=== PATIENT | male | born 1945 | race African-American/Black ===

== ENCOUNTER → 2018-04-22 | Outpatient (CLI) | payer OTHER ==
[~2018-04-22] VITALS: Ht 188 cm; Wt 90.3 kg
[~2018-04-22] MED LIST: ASPIR 8181 MG PO; ATORVASTATIN CA40 MG PO; COREG25 MG PO; DIOVAN 80 MG TA80 M1 PO; ELIQUIS5 MG PO; HYDROCHLOROTHIA25 M2 PO; HYZAAR 100-251 EACH PO; K-DUR 20 MEQ T20 MEQ PO; LIORESAL 10 MG10 MG PO; LISINOPRIL20 MG PO; MOTION RELIEF25 MG PO; NIFEDICAL XL60 MG PO; PACERONE 200 M200 M1 PO; PLAVIX 75 MG TA75 M1 PO; PROCARDIA XL30 MG PO; SPIRONOLACTONE25 M1 PO; TRAMADOL 50 MG50 MG PO
[2018-04-22 10:07] VITALS: BP 150/89
[2018-04-22 10:13] LABS: HEMATOCRIT 38.2 % (42.0-52.0); HEMOGLOBIN 12.4 gm/dL (14.0-18.0); MCH 32.3 pg (26.0-34.0); MCHC 32.6 g/dL (28.0-37.0); MCV 99.1 fL (80.0-100.0); MPV 10.2 fl. (7.2-11.1); RBC 3.85 mil/uL (4.50-6.00); RDW-CV 14.4 % (10.5-14.5); WBC 5.2 thou/uL (4.0-11.0)
[2018-04-22 10:25] LABS: APTT 32.4 Seconds (25.0-31.3); INR 1.2; PROTIME 11.6 Seconds (9.20-11.50)
[2018-04-22 10:54] LABS: ANION GAP 8 mmol/L (7-16); BUN 17 mg/dL (7-18); CALCIUM 8.5 mg/dL (8.5-10.1); CHLORIDE 105 mmol/L (98-107); CO2 26 mmol/L (21-32); CREATININE 1.3 mg/dL (0.6-1.3); GLUCOSE 95 mg/dL (70-99); POTASSIUM 4.7 mmol/L (3.5-5.1); SODIUM 139 mmol/L (136-145)
[2018-04-22 10:59] LABS: ALBUMIN 3.5 g/dL (3.4-5.0); ALKALINE PHOSPHATASE 60 U/L (46-116); CHOLESTEROL 110 mg/dL (<200); HDL CHOLESTEROL 51 mg/dL (>40); LDL CHOLESTEROL 49 mg/dL (<100); SGOT 21 U/L (15-37); SGPT 26 U/L (30-65); TC:HDL 2.2 Ratio (Not establshd); TOTAL BILIRUBIN 1.1 mg/dL (<0.1-1.0); TRIGLYCERIDE 52 mg/dL (<150); VLDL 10 mg/dL (<40)
[2018-04-22 11:02] LABS: SERUM ASSESSMENT Clear
[2018-04-22 12:14] VITALS: BP 156/99
[2018-04-22 12:57] VITALS: BP 144/88
--- NOTE | 2018-04-22 14:53 | EKG ---
[place] [address] ELECTROCARDIOGRAM REPORT Name: ROHAN WHITEHEAD Room: [facility]#: [id number] Admission: 04/22/18 Attend Phys: Rj Thornton MD Discharge: Date of : 43 Report #: [id number] THIS REPORT FOR: //name// [facility] Test Date: 2018-04-22 Test Time: 10:02:28 Pat Name: ROHAN WHITEHEAD Department: Room: Gender: M Manager Local: : 1945 Requested By: Rj Thornton Order Number: [id number] Reading MD: Rj Thornton Measurements Intervals [place] Rate: 60 P: [place]: 197 QRS: -28 QRSD: 126 T: QT: 483 QTc: 483 Interpretive Statements Atrial-paced rhythm Left bundle branch block Compared to ECG 06/04/2016 07:50:48 Left bundle-branch block now present Sinus rhythm no longer present Ventricular premature complex(es) no longer present Electronically Signed On 04-22-2018 14:53:23 CDT by Rj Thornton [email or web address] <ELECTRONICALLY SIGNED> By: Rj Thornton MD, FAC 04/22/18 1453 1002 1002 Rj Thornton MD, [facility] /EPI
--- NOTE | 2018-04-29 14:40 | CARD ---
[address] [address] CARDIAC CATH REPORT Name: ROHAN WHITEHEAD Room: [facility]#: [id number] Admission: 04/22/18 Attend Phys: Rj Thornton MD Discharge: Date of : 43 Report #: [id number] THIS REPORT FOR: //name// APPROVED REPORT Study performed: 04/22/2018 10:17:48 Patient Status: Out-Patient Room #: Event Personnel: Rj Thornton Office System Analyst, Laurel Glez RN Circuit Rider, Kai Mcwilliams (R) Monitor, Nelly Mcdermott RTR Scrub, Bhavya Arroyo RTR Scrub, Cynthia Goldstein Monitor Exam: ICD generator change Indications: ICD generator at elective replacement The patient is a 72 year-old male with a history of nonischemic cardiomyopathy status post ICD placement for primary prevention. Patient Info Last EF%: 15-20% Date: 03/25/18 NYHA Heart Class: II Reason for implant: Primary prevention Intraoperative Conscious Sedation Sedation start time: 10:48 Case end Time: 11:30 Fentanyl 75 mcg Versed 2 mg Implanted Devices: Biotronik Itrevia 7 DRT DF 1, model #863037, serial #[id number] dual-chamber ICD generator Explanted Devices: Medtronic Secura DR, model number D2 to 4 DRG, serial number [id number] dual-chamber ICD generator Procedure After explaining the risks, benefits, and alternative options, informed consent was obtained from the patient. The patient was brought to the cardiac catheterization lab and the left chest and shoulder were prepped and draped in the usual fashion. After informed consent was obtained the patient was brought to the cardiac catheterization lab. The area of the left chest was prepped and draped in sterile fashion. Local anesthesia was achieved with 1% lidocaine. After an initial incision was made the ICD generator was explanted using electrocautery and blunt [place] [address] CARDIAC CATH REPORT Name: ROHAN WHITEHEAD Room: [facility]#: [id number] Admission: 04/22/18 Attend Phys: Rj Thornton MD Discharge: Date of : 43 Report #: [id number] was then removed from the atrial and ventricular defibrillator lead. The pocket was flushed with antibiotic solution. A new dual-chamber ICD generator was attached to the atrial and pacing defibrillator lead. The generator and redundant lead were then replaced within the device pocket. The deep tissues were closed with interrupted stitches of 2-0 Vicryl. The skin incision was then closed with a single subcuticular stitch of 4-0 Vicryl. Several Steri-Strips were placed across the incision. A sterile Telfa dressing was then covered with a Tegaderm. The patient tolerated procedure well without complication. Findings Sensed P-wave 1.20 mV. Sensed R-wave 22.5 mV. Right atrial pacing threshold 1.0 V at 0.40 ms. Right ventricular pacing threshold 1.5 V at 0.40 ms. Atrially pacing impedance 375 ohms. RV pacing impedance 346 ohms. VT 1 section rate 154 bpm. VT 2 detection rate 171 bpm. VF detection rate to 100 bpm. VT 1 therapy monitor. VT 2 therapies anti-tach pacing 6 followed by 40 J shock times a day. VF therapies anti-tach pacing times one followed by 40 J shock times a day. Conclusion 1. Dual-chamber ICD generator at elective replacement. 2. Successful replacement of a dual-chamber ICD generator. Recommendations 1. Follow-up site check in one week. 2. Follow-up interrogations per protocol. <ELECTRONICALLY SIGNED> By: Rj Thornton MD, FACC 04/29/18 1440 1440 1440Mickay Thornton MD, FACC /INF
--- NOTE | 2018-05-07 16:55 | H ---
[place] [address] HISTORY AND PHYSICAL Name: ROHAN WHITEHEAD Room: [facility]#: [id number] Admission: 04/22/18 Attend Phys: Rj Thornton MD Discharge: Date of : 43 Report #: [id number] THIS REPORT FOR: //name// CC: Doug Thornton DATE OF ADMISSION: 04/22/2018 HISTORY OF PRESENT ILLNESS: The patient is a very pleasant 72-year-old white male with a history of ICD placement for nonischemic cardiomyopathy. His generator has reached elective replacement. The patient is being brought to the hospital today for elective ICD generator change. PAST MEDICAL HISTORY: 1. Cardiomyopathy that is nonischemic. 2. Nonocclusive coronary artery disease. 3. Hyperlipidemia. 4. Essential hypertension. 5. Remote ICD placement for primary prevention. FAMILY HISTORY: Noncontributory. SOCIAL HISTORY: The patient quit smoking in 1965. He drinks alcohol rarely. ALLERGIES: CARVEDILOL AND SHELLFISH. CURRENT MEDICATIONS: Amiodarone 200 mg daily, Eliquis 5 mg b.i.d., atorvastatin 80 mg daily, clopidogrel 75 mg daily, losartan/hydrochlorothiazide 100/25 one tablet daily, nifedipine XL 30 mg daily, potassium chloride 20 mEq daily. REVIEW OF SYSTEMS: GENERAL: The patient denies fevers, chills or weight loss. HEENT: No history of nosebleeds. CARDIAC: He denies any significant chest pain, claudication or leg swelling. He denies near syncope, orthopnea or palpitations. He denies syncope. RESPIRATORY: He denies cough or shortness of breath. ENDOCRINE: He denies cold intolerance or heat intolerance. HEMATOLOGIC AND LYMPHATIC: No history of cancer, blood clots or bleeding disorder. SKIN: He denies any rashes. MUSCULOSKELETAL: He has arthralgias, but denies connective tissue disease. GENITOURINARY: He denies pain, nausea, vomiting, hematemesis or hematochezia. NEUROLOGIC: He denies any dizziness, lightheadedness. PSYCHIATRIC: He denies any depression or anxiety. PHYSICAL EXAMINATION: [place] [address] HISTORY AND PHYSICAL Name: CARLOS EDUARDOHARJINDERROHAN Harmeet Room: [facility]#: [id number] Admission: 04/22/18 Attend Phys: Rj Thornton MD Discharge: Date of : 43 Report #: [id number] VITAL SIGNS: Stable. Blood pressure 146/64, pulse 60 and regular. GENERAL: This is a pleasant elderly gentleman in no distress. Mood and affect appropriate. HEENT: Extraocular muscles intact. NECK: Without jugular venous distention or bruit. CHEST: Clear to auscultation. CARDIAC: Regular rhythm without gallop or murmur. ABDOMEN: Soft and nontender. EXTREMITIES: Without clubbing, cyanosis or edema. SKIN: Warm and dry. IMPRESSION: 1. ICD generator elective replacement. 2. Nonischemic cardiomyopathy. 3. Nonocclusive coronary artery disease. 4. History of paroxysmal atrial fibrillation. 5. Chronic systolic heart failure. 6. Essential hypertension. 7. Pure hyperlipidemia. 8. Chronic anticoagulation. 9. Remote history of transient ischemic attack. PLAN: 1. ICD generator change. 2. Continue other medications as outlined above. <ELECTRONICALLY SIGNED> By: Rj Thornton MD, FACC 05/07/18 1655 1619 1718Mickay Thornton MD, FACC /nt
== END | disposition home or self-care (01) ==
LOC: M.CL 04-10 09:50
PROVIDERS: Internal Medicine Cardiovascular Disease
DX: Z45.02 Encounter for adjustment and management of automatic implantable cardiac defibrillator (principal); I10 Essential (primary) hypertension; I25.10 Atherosclerotic heart disease of native coronary artery without angina pectoris; Z96.651 Presence of right artificial knee joint; Z86.73 Personal history of transient ischemic attack (TIA), and cerebral infarction without residual deficits; Z98.890 Other specified postprocedural states; Z79.01 Long term (current) use of anticoagulants; Z79.899 Other long term (current) drug therapy

== ENCOUNTER 2018-11-04 22:18 | Emergency (ER) | payer OTHER ==
[~2018-11-04] VITALS: Ht 188 cm; Wt 90.3 kg
[2018-11-04 22:59] LABS: ABSOLUTE BASOPHILS 0.1 thou/uL (0.0-0.2); ABSOLUTE EOSINOPHILS 0.2 thou/uL (0.0-0.7); ABSOLUTE LYMPHOCYTES 3.3 thou/uL (0.8-5.3); ABSOLUTE MONOCYTES 0.5 thou/uL (0.0-1.2); ABSOLUTE NEUTROPHILS 2.7 thou/uL (1.6-8.1); EOSINOPHILS 3.4 %; HEMATOCRIT 38.6 % (42.0-52.0); HEMOGLOBIN 12.5 gm/dL (14.0-18.0); MCH 32.5 pg (26.0-34.0); MCHC 32.4 g/dL (28.0-37.0); MCV 100.2 fL (80.0-100.0); MONOCYTES 7.4 %; MPV 9.6 fl. (7.2-11.1); NUCLEATED RBCS 0 /100WBC; PLATELET COUNT* 168 thou/uL (150-400); POLYS 40.2 %; RBC 3.85 mil/uL (4.50-6.00); RDW-CV 13.2 % (10.5-14.5); WBC 6.8 thou/uL (4.0-11.0)
[2018-11-04 23:14] LABS: ANION GAP 5 mmol/L (7-16); BUN 14 mg/dL (7-18); CALCIUM 8.7 mg/dL (8.5-10.1); CHLORIDE 107 mmol/L (98-107); CO2 28 mmol/L (21-32); CREATININE 1.3 mg/dL (0.6-1.3); GLUCOSE 90 mg/dL (70-99); POTASSIUM 4.6 mmol/L (3.5-5.1); SODIUM 140 mmol/L (136-145); TROPONIN-I LEVEL <0.06 ng/mL (<0.06)
[2018-11-04 23:15] LABS: ALBUMIN 3.7 g/dL (3.4-5.0); ALKALINE PHOSPHATASE 70 U/L (46-116); NT-PRO BRAIN NAT PEPTIDE 295 pg/mL (<300); SGOT 21 U/L (15-37); SGPT 23 U/L (30-65); TOTAL BILIRUBIN 0.6 mg/dL (<0.1-1.0); TOTAL PROTEIN 7.4 g/dL (6.4-8.2)
[2018-11-04 23:34] VITALS: BP 159/83
--- NOTE | 2018-11-05 09:40 | EKG ---
[place] [address] ELECTROCARDIOGRAM REPORT Name: ROHAN WHITEHEAD Room: [facility]#: [id number] Admission: 11/04/18 Attend Phys: Discharge: 11/04/18 Date of : 43 Report #: [id number] THIS REPORT FOR: //name// [facility] Test Date: 2018-11-04 Test Time: 22:51:07 Pat Name: ROHAN WHITEHEAD Department: Room: Gender: M Infectious Disease Physician: : 1945 Requested By: Zak Guerrero Order Number: [id number] MD: Doug Banegas Measurements Intervals [place] Rate: 60 P: [place]: 171 QRS: -27 QRSD: 126 T: 55 QT: 474 QTc: 474 Interpretive Statements Atrial-paced rhythm LEFT VENTRICULAR HYPERTROPHY with repolarization changes Compared to ECG 04/22/2018 10:02:28 atrial paced rhythm noted Electronically Signed On 11-05-2018 9:40:23 CDT by Doug Banegas [email or web address] <ELECTRONICALLY SIGNED> By: Doug Banegas MD, [facility] 11/05/18 0940 50 50 Doug Banegas MD, FACC /EPI
== END 2018-11-04 23:36 | disposition home or self-care (01) ==
LOC: M.ERS 22:18
PROVIDERS: Emergency Medicine
DX: R42 Dizziness and giddiness (principal); R51 Headache; I10 Essential (primary) hypertension; Z96.651 Presence of right artificial knee joint; Z86.73 Personal history of transient ischemic attack (TIA), and cerebral infarction without residual deficits; Z91.013 Allergy to seafood

== ENCOUNTER 2020-04-30 12:13 | Emergency (ER) | payer OTHER ==
[~2020-04-30] VITALS: Ht 188 cm; Wt 96.2 kg
[2020-04-30 12:19] VITALS: BP 139/70
[2020-04-30] MEDS ORDERED: TAMSULOSIN HCL0.4 MG PO (12:23)
[2020-04-30] MEDS ORDERED: AMIODARONE HCL400 MG PO (12:24)
[2020-04-30] MEDS ORDERED: NIFEDIPINE ER30 M1 PO (12:24)
[2020-04-30] MEDS ORDERED: ELIQUIS5 MG PO (12:25)
[2020-04-30] MEDS ORDERED: ASA81BEC PO (12:25)
[2020-04-30 12:47] LABS: CALCIUM 8.4 mg/dL (8.5-10.1); CREATININE 1.5 mg/dL (0.6-1.3); POTASSIUM 3.9 mmol/L (3.5-5.1)
[2020-04-30 12:48] LABS: INR 1.2; PROTIME 11.9 Seconds (9.20-11.50)
[2020-04-30 12:50] LABS: ABSOLUTE BASOPHILS 0.1 thou/uL (0.0-0.2); ABSOLUTE EOSINOPHILS 0.1 thou/uL (0.0-0.7); ABSOLUTE LYMPHOCYTES 2.1 thou/uL (0.8-5.3); ABSOLUTE MONOCYTES 0.4 thou/uL (0.0-1.2); ABSOLUTE NEUTROPHILS 2.6 thou/uL (1.6-8.1); BASOPHILS 1.4 %; EOSINOPHILS 1.4 %; HEMATOCRIT 39.1 % (42.0-52.0); HEMOGLOBIN 13.1 gm/dL (14.0-18.0); LYMPHOCYTES 40.3 %; MCH 33.3 pg (26.0-34.0); MCHC 33.5 g/dL (28.0-37.0); MCV 99.3 fL (80.0-100.0); MONOCYTES 6.9 %; MPV 9.8 fl. (7.2-11.1); NUCLEATED RBCS 0 /100WBC; PLATELET COUNT* 164 thou/uL (150-400); RBC 3.94 mil/uL (4.50-6.00); RDW-CV 13.9 % (10.5-14.5); WBC 5.2 thou/uL (4.0-11.0)
[2020-04-30 12:51] LABS: ALBUMIN 3.8 g/dL (3.4-5.0); TOTAL BILIRUBIN 0.6 mg/dL (<0.1-1.0); TOTAL PROTEIN 7.2 g/dL (6.4-8.2)
[2020-04-30 14:54] VITALS: BP 133/71
--- NOTE | 2020-05-01 10:12 | EKG ---
[place] [address] ELECTROCARDIOGRAM REPORT Name: ROHAN WHITEHEAD Room: [facility]#: [id number] Admission: 04/30/20 Attend Phys: Discharge: 04/30/20 Date of : 43 Date of Service: 04/30/20 1219 Report #: [id number] THIS REPORT FOR: //name// [facility] ED Test Date: 2020-04-30 Test Time: 12:19:38 Pat Name: ROHAN WHITEHEAD Department: Room: [facility] Gender: M Bobbin Coil Winder: : 1945 Requested By: Greg Hernandez Order Number: [id number] MD: Doug Banegas Measurements Intervals [place] Rate: 64 P: 10 [place]: 180 QRS: -31 QRSD: 120 T: -83 QT: 488 QTc: 504 Interpretive Statements Sinus rhythm Ventricular premature complex LVH with IVCD and secondary repol abnrm Prolonged QT interval Compared to ECG 11/04/2018 22:51:07 Ventricular premature complex(es) now present Prolonged QT interval now present Atrial-paced complex(es) or rhythm no longer present Electronically Signed On 05-01-2020 10:12:18 CDT by Doug Banegas [email or web address] <ELECTRONICALLY SIGNED> By: Doug Banegas MD, [facility] 05/01/20 1012 Doug Banegas MD, [facility] /EPI
== END 2020-04-30 15:02 | disposition left against medical advice (07) ==
LOC: M.ERS 12:13 → M.TBA-ER 14:10 → M.ERS 15:02
PROVIDERS: Emergency Medicine Emergency Medical Services
DX: I63.9 Cerebral infarction, unspecified (principal); G45.9 Transient cerebral ischemic attack, unspecified; I10 Essential (primary) hypertension; I48.91 Unspecified atrial fibrillation; Z86.73 Personal history of transient ischemic attack (TIA), and cerebral infarction without residual deficits; Z91.013 Allergy to seafood; Z96.652 Presence of left artificial knee joint